=== PATIENT | female | born 1950 | race Caucasian/White ===

== ENCOUNTER 2020-04-21 19:22 | Inpatient (IN) | payer OTHER ==
[2020-04-21 20:17] LABS: HEMOGLOBIN 13.9 gm/dl (12.3-15.3); RED BLOOD COUNT 4.71 M/UL (4.00-5.10); WHITE BLOOD COUNT 7.2 K/UL (4.5-11.0)
[2020-04-21 20:43] LABS: BUN/CREATININE RATIO 14 (0-10)
[2020-04-22] MEDS ORDERED: ZITHROMAX250 MG PO (00:37)
[2020-04-22] MEDS ORDERED: BENZONATATE200 MG PO (00:37)
[2020-04-22] MEDS ORDERED: ZOFRAN ODT 4 MG4 MG PO (00:38)
[2020-04-22] MEDS ORDERED: DIOVAN160 MG PO (00:38)
[2020-04-22] MEDS ORDERED: LEVOTHYROXINE50 MC1 PO (00:39)
[2020-04-22] MEDS ORDERED: METOPROLOL TART25 MG PO (00:39)
[2020-04-22] MEDS ORDERED: LIPITOR TAB 2020 MG PO (00:40)
[2020-04-22 07:33] LABS: HEMOGLOBIN 12.9 gm/dl (12.3-15.3); RED BLOOD COUNT 4.54 M/UL (4.00-5.10)
[2020-04-22 07:37] LABS: WHITE BLOOD COUNT 4.6 K/UL (4.5-11.0)
[2020-04-22 07:47] LABS: BUN/CREATININE RATIO 16 (0-10)
[2020-04-24 07:31] LABS: HEMOGLOBIN 13.5 gm/dl (12.3-15.3); RED BLOOD COUNT 4.7 M/UL (4.00-5.10)
[2020-04-24 07:34] LABS: WHITE BLOOD COUNT 6.2 K/UL (4.5-11.0)
[2020-04-24 07:39] LABS: BUN/CREATININE RATIO 28 (0-10)
[2020-04-26 15:37] LABS: HEMOGLOBIN 13.9 gm/dl (12.3-15.3); RED BLOOD COUNT 4.74 M/UL (4.00-5.10); WHITE BLOOD COUNT 8.8 K/UL (4.5-11.0)
[2020-04-26 15:59] LABS: BUN/CREATININE RATIO 25 (0-10)
--- NOTE | 2020-04-26 20:07 | NUR ---
1630 pt called out requesting to go back to bed states that she feels sick, went and opened door pt sitting in bedside chair pale and diphoretic gowned up went into pts room called for assistance to help put pt back to bed,tele calls and states that pts hr up into 170[address] notified dr james orders received for stat ekg, resp notified of need of ekg, pt very weak continues to complain of nausea while assisting pt back to bed pt lost continence of bowels, animal caregiver and nurse cleaning pt up and changing bed, resp present to do ekg pt becomes more short of air with labored breathing then code called
--- NOTE | 2020-04-27 14:07 | NUR ---
LE 04/26/20 1720 JORDIN CHACON RN SPOKE WITH FAMILY ON THE PHONE AT THIS TIME, DAUGHTER ON HER WAY. LE 1741 DAUGHTER ,GERMAN,NOTIFIED REGARDING PTS CONDITION BY SHERICE TOMLINSON
== END 2020-04-26 17:55 | disposition expired | DRG 177 ==
LOC: ER1 19:22 → CDU 23:07 → M/S 23:07
PROVIDERS: Emergency Medicine; Family Medicine; Internal Medicine; ADMIT Internal Medicine
PROC: 06HY33Z Insertion of Infusion Device into Lower Vein, Percutaneous Approach (ICD-10-PCS; 2020-04-21)
PROC: 8E0ZXY6 Isolation (ICD-10-PCS; 2020-04-21)
PROC: XW033E5 Introduction of Remdesivir Anti-infective into Peripheral Vein, Percutaneous Approach, New Technology Group 5 (ICD-10-PCS; principal; 2020-04-22)
DX: U07.1 COVID-19 (principal); J12.89 Other viral pneumonia; J96.01 Acute respiratory failure with hypoxia; E86.9 Volume depletion, unspecified; I10 Essential (primary) hypertension; E03.9 Hypothyroidism, unspecified; E78.5 Hyperlipidemia, unspecified; Z90.49 Acquired absence of other specified parts of digestive tract; E86.0 Dehydration; E11.9 Type 2 diabetes mellitus without complications
CPT/HCPCS: 31500; 36415; 36600; 71045; 80048; 80053; 81001; 82550; 82553; 82803; 82962; 83605; 84484; 85007; 85025; 85027; 85610; 87040; 87086; 92950; 93005; 96365; 96366; 96368; 96375; 97162; 99285; J0171; J0456; J0461; J0696; J1100; J2001; J2550; J7030; J7070; M0239